=== PATIENT | male | born 1970 | race Caucasian/White ===

== ENCOUNTER 2021-06-29 18:36 | Emergency (ER) | payer OTHER ==
[~2021-06-29] VITALS: Ht 175.3 cm; Wt 105.5 kg
[2021-06-29] MEDS ORDERED: LISI-894 PO (18:49)
[2021-06-29] MEDS ORDERED: LISINOPRIL 10 MG TABLET PO ONE (19:30)
[2021-06-29 19:42] LABS: BASOPHILS % (AUTO) 0.5 % (0.0-2.0); EOSINOPHILS % (AUTO) 0.8 % (1.0-6.0); HEMATOCRIT 42.9 % (41-53); HEMOGLOBIN 14.6 g/dL (13.5-17.5); LYMPHOCYTES % (AUTO) 21.2 % (22.0-44.0); MEAN CORPUSCULAR HEMOGLOBIN 26.7 pg (26.0-34.0); MEAN CORPUSCULAR VOLUME 79 fL (80-100); MONOCYTES # (AUTO) 0.4 K/uL (0.1-1.0); MONOCYTES % (AUTO) 8.7 % (2.0-9.0); NEUTROPHILS # (AUTO) 3.2 K/uL (1.8-7.7); NEUTROPHILS % (AUTO) 68.8 % (40.0-70.0); PLATELET COUNT (AUTO) 171 K/uL (150-450); RED BLOOD CELL COUNT(AUTO) 5.47 MIL/uL (4.50-5.90); RED CELL DISTRIBUTION WIDTH 14.8 % (11.5-14.5)
[2021-06-29 19:49] LABS: CALCIUM, TOTAL 8.9 mg/dL (8.8-10.5); CREATININE 1.37 mg/dL (0.60-1.30); POTASSIUM 3.9 mmol/L (3.5-5.1)
[2021-06-29 20:00] VITALS: BP 159/80
== END 2021-06-29 20:40 | disposition home or self-care (01) ==
LOC: EMS 18:39
DX: R42 Dizziness and giddiness (principal); I10 Essential (primary) hypertension
CPT/HCPCS: 80048; 85025; 93005; 99284